=== PATIENT | male | born 1985 | race Two or more races ===

== ENCOUNTER → 2020-04-17 | Outpatient (CLI) | payer OTHER | LOC: OD 09:42 | PROVIDERS: ATTEND Surgery | DX: S43.432A Superior glenoid labrum lesion of left shoulder, initial encounter (principal); X58.XXXA Exposure to other specified factors, initial encounter; Y93.9 Activity, unspecified; Y92.9 Unspecified place or not applicable | CPT/HCPCS: 87635; C9803 ==